=== PATIENT | female | born 1935 | race Caucasian/White ===

== ENCOUNTER → 2016-10-18 | Outpatient (CLI) | payer OTHER ==
[~2016-10-18] MED LIST: ACETAMINOPHEN PO; ANSAID100 MG PO; BAYER ASPIRIN325 M1 PO; DICYCLOMINE HCL20 MG PO; FLAGYL PO; FLURBIPROFEN50 MG; FLURBIPROFEN50 MG PO; MEDROL PO; NORVASC PO; OMEPRAZOLE20 M2 PO; PROZAC PO; TAGAMET300 MG; TRAMADOL HCL50 M1 PO; VICODIN 5/500 T1 TAB PO; VITAMIN B12; VITAMIN D1000 UNI1 PO; ZOVIRAX PO
--- NOTE | ~2016-10-18 | CR151 ---
[facility] A Service of [facility] RADIOLOGY TEXT RESULTS PATIENT: VIKAS MARINO LOCATION: [facility] : 39 UNIT #: [id number] AGE: [address]: Yahaira Salas MD SEX: F ORDER DR: [id number] [facility] [address] [place], [place] [address] [id number] O MR#: [id number] Acc #: [id number] NAME: VIKAS MARINO : 1935 SEX: F STUDY DATE/TIME: 10/18/2016 10:29 UNIT: [facility] ROOM: STUDY DESCRIPTION: CR Hip Min 2 Views Rt Attending Physician: Yahaira Salas M.D. Referring Physician: Yahaira Salas M.D. Ordering Physician: Yahaira Salas M.D. Primary Care Physician: Yahaira Salas M.D. MEDICAL IMAGING REPORT This report is preliminary unless electronic signature is present EXAM Right hip HISTORY Right hip pain beginning 2-3 weeks ago. No known injury. FINDINGS AP pelvis and frog lateral view of the right hip demonstrates no fracture or dislocation. No arthritic changes of the hip. Mild degenerative disc disease and facet arthropathy lower lumbar spine. Soft tissues unremarkable. IMPRESSION Suspected facet arthropathy and degenerative disc changes lower lumbar spine. The right hip is unremarkable. Dictated by... Laryr Patino M.D. THIS IS AN ELECTRONICALLY VERIFIED REPORT Larry Patino M.D. at 10/19/2016 2:46 PM Murphy TD: 10/18/2016 18:09 JOB #: [id number] MEDICAL IMAGING REPORT Page 1 of 1 COPY
== END | disposition home or self-care (01) ==
LOC: CRAD 10:01
DX: M16.11 Unilateral primary osteoarthritis, right hip (principal); M51.36 Other intervertebral disc degeneration, lumbar region
CPT/HCPCS: 73502